=== PATIENT | female | born 1995 | race Caucasian/White ===

== ENCOUNTER → 2017-06-16 | Outpatient (CLI) | payer BC, OTHER ==
[~2017-06-16] MED LIST: AGM875T PO; DROS1TAB PO; HYDR-3583 PO; IBUP400T22 PO; NORG1TAB15 PO; OMEP-10 PO
--- NOTE | 2017-06-16 13:41 | Diagnostic Imaging Report ---
INDICATION: Dyspareunia and pain. TECHNIQUE: Multiple realtime grayscale images were obtained of the pelvis in various projections both transabdominally and endovaginally. FINDINGS: Uterus measures 7.3 x 4.3 x 3.7 cm. Endometrial thickness is 8 mm. There are no discrete myometrial or endometrial masses. Both ovaries are normal in size, morphology and demonstrate normal blood flow. There is a partially collapsed cyst in the left ovary measuring 1.4 cm. There is a small amount of free fluid in the cul-de-sac. IMPRESSION: 1.4 cm partially collapsed cyst in the left ovary as well as a small amount of free fluid in the pelvis, otherwise unremarkable pelvic ultrasound. Dictated by: Dictated on workstation # [id number]
== END ==
LOC: RAD 12:11
PROVIDERS: ATTEND Nurse Practitioner Family
DX: N83.202 Unspecified ovarian cyst, left side (principal)
CPT/HCPCS: 76830; 76856

== ENCOUNTER 2022-03-12 18:47 | Inpatient (IN) | payer OTHER ==
[~2022-03-12] VITALS: Ht 157.5 cm; Wt 170.0 kg
[2022-03-12 20:08] VITALS: BP 127/82
[2022-03-12] MEDS ORDERED: TERBUTALINE INJ 1 MG/ML (BRETHINE) AMP SC PRN (20:30)
[2022-03-12] MEDS ORDERED: MINERAL OIL 30 ML TOP PRN (20:30)
[2022-03-12] MEDS ORDERED: LACTATED RINGERS 1,000 ML IV SCH (20:30)
[2022-03-12] MEDS ORDERED: AMPICILLIN FOR IV USE 2,000 MG in NS (IVPB) 50 ML IV SCH (20:52)
[2022-03-12 21:00] LABS: BILIRUBIN,URINE NEGATIVE (NEGATIVE); CLARITY,URINE CLEAR; COLOR,URINE YELLOW; GLUCOSE, URINE (UA) NEGATIVE (NEGATIVE); KETONES,URINE NEGATIVE (NEGATIVE); LEUKOCYTE ESTERASE ,URINE NEGATIVE (NEGATIVE); NITRITE,URINE NEGATIVE (NEGATIVE); PH,URINE 6.5 (5-9); PROTEIN,URINE NEGATIVE (NEGATIVE)
[2022-03-12 21:27] LABS: BASOPHILS % (AUTO) 0 % (0-10); EOSINOPHILS # (AUTO) 0.1 10^3/uL (0.0-0.3); EOSINOPHILS % (AUTO) 1 % (0-10); HEMATOCRIT 37 % (35-52); HEMOGLOBIN 12.7 g/dL (11.5-16.0); LYMPHOCYTES # (AUTO) 3.5 10^3/uL (1.0-4.0); LYMPHOCYTES % (AUTO) 30 % (12-44); MEAN CORPUSCULAR HEMOGLOBIN 32 pg (25-34); MEAN CORPUSCULAR HGB CONC 34 g/dL (32-36); MEAN CORPUSCULAR VOLUME 92 fL (80-99); MEAN PLATELET VOLUME 10.7 fL (9.0-12.2); MONOCYTES # (AUTO) 0.7 10^3/uL (0.0-1.0); MONOCYTES % (AUTO) 6 % (0-12); NEUTROPHILS # (AUTO) 7.4 10^3/uL (1.8-7.8); NEUTROPHILS % (AUTO) 63 % (42-75); PLATELET COUNT 218 10^3/uL (130-400); WHITE BLOOD COUNT 11.8 10^3/uL (4.3-11.0)
[2022-03-12] MEDS ORDERED: D5 LR IV SOLUTION 1,000 ML IV ONE (21:34)
[2022-03-12] MEDS ORDERED: AMPICILLIN 2,000 MG/14.8 ML (IV USE) ONE (21:35)
[2022-03-12] MEDS ORDERED: NS (IVPB) 50 ML ONE (21:35)
[2022-03-12 21:37] LABS: BACTERIA,URINE TRACE /HPF; RBC,URINE RARE /HPF
[2022-03-12 21:39] VITALS: BP 140/85
[2022-03-12] MEDS: D5 LR IV SOLUTION 1,000 ML IV SCH ×2 (21:43→23:00)
[2022-03-12] MEDS: CATHETER FLUSH 10 ML SYR IV SCH (22:00)
[2022-03-12 22:10] VITALS: BP 116/71
[2022-03-12 22:39] VITALS: BP 116/85
[2022-03-12 23:17] VITALS: BP 120/77
[2022-03-13] VITALS (68 sets, daily range): BP systolic 103–152; BP diastolic 57–92
[2022-03-13] MEDS: AMPICILLIN FOR IV USE 1,000 MG in NS (IVPB) 50 ML IV SCH ×6 (01:40→22:00)
[2022-03-13] MEDS ORDERED: MAGN250T13 PO (05:58)
[2022-03-13] MEDS ORDERED: PNV91TAB6 PO (05:58)
[2022-03-13] MEDS: CATHETER FLUSH 10 ML SYR IV SCH ×2 (06:00→16:09)
[2022-03-13] MEDS: D5 LR IV SOLUTION 1,000 ML IV SCH ×2 (07:47→16:19)
--- NOTE | 2022-03-13 07:58 | History & Physical-OB ---
OB - Chief Complaint & HPI Date/Time Date of Admission: Date of Admission: Mar 12, 2022 at 19:56 Date seen by a Provider: Mar 13, 2022 Time Seen by a Provider: 07:00 Chief Complaint/History OB-Reason for Admission/Chief: Induction of Labor Hx : 3 Hx Para: 0 Expected Date of Delivery: March 07, 2022 Gestational Age in Weeks: 40 Gestational Age in Days: 6 Allergies and Home Medications Allergies Coded Allergies: No Known Drug Allergies (Unverified , 08/01/11) Patient Home Medication List Home Medication List Reviewed: Yes Magnesium Oxide (Magnesium) 250 Mg Tablet, 250 MG PO DAILY, (Reported) Entered as Reported by: JAN IVERSON on 03/13/22557 Last Action: New Order Pnv95/Ferrous Fumarate/FA ( Vitamin Tablet) 28 Mg Iron-800 Mcg Tablet, 1 EACH PO DAILY, (Reported) Entered as Reported by: JAN IVERSON on 03/13/22557 Last Action: New Order Discontinued Medications Norgestimate-Ethinyl Estradiol (Tri-Sprintec 28 Day) 1 Each Tablet, 1 EACH PO DAILY, (Reported) Discontinued Reason: No Longer Taking Entered as Reported by: TEZ MATT on 12/19/112136 Last Action: Discontinued Omeprazole (Prilosec 20 Mg) 20 Mg Capsule., 20 MG PO DAILY@,16 Discontinued Reason: No Longer Taking Prescribed by: INA FRANKLIN on 09/04/13747 Last Action: Discontinued OB - History Hx of Present Care: Yes Ultrasounds: Normal mid trimester US Obstetrical Complications: None Medical Complications: None Information Induced Hypertension: No Maternal Gestational Diabetes: No Hemorrhage: No Obstetrical History Hx : 3 Hx Para: 0 Number of Living Children: 0 Delivery History Hx Blood Disorders: No Patient Past Medical History None Social History/Family History Alcohol Use: Denies Use Recreational Drug Use: No Smoking Cessation: Never smoker 2nd Hand Smoke Exposure: No Immunizations Tetanus Booster (TDap): Less than 5yrs Rubella: immune RPR/VDRL: Negative GBS Status: Positive (Urine Culture at OB intake) HBsAG: Negative OB - Admission Exam Physical Exam Vitals: Vital Signs 03/13/22 06:21 Temp 36.9 Pulse 75 Resp 18 B/P (MAP) 142/88 (106) O2 Delivery Room Air HEENT: NCAT Heart: Rhythm Normal Lungs: Clear Abdomen: Gravid Cervical Dilatation: 2cm Effacement: 50% Station: -2 Membranes: Intact Accelerations: Accelerations Present Decelerations: No Decelerations Short Term Variability: Present Care Home Variability: Average (6-25) Contractions on Admission: < 5 Minutes Apart Intensity: Moderate [place] Scoring Tool (Modified) Dilation (cm): 1-2cm (1) Effacement (%): 51-79% (2) Descent/Station: -2 (1) Cervix Consistency: Medium(1) Cervix Position: Posterior (0) Subtract 1 point for: Nulliparity (-1) Labs Laboratory Tests Test 03/12/22 19:00 03/12/22 21:00 Range/Units Urine Color YELLOW Urine Clarity CLEAR Urine pH 6.5 5-9 Urine Specific [place] <=1.005 1.016-1.022 Urine Protein NEGATIVE NEGATIVE Urine Glucose (UA) NEGATIVE NEGATIVE Urine Ketones NEGATIVE NEGATIVE Urine Nitrite NEGATIVE NEGATIVE Urine Bilirubin NEGATIVE NEGATIVE Urine Urobilinogen 0.2 < = 1.0 MG/DL Urine Leukocyte Esterase NEGATIVE NEGATIVE Urine RBC (Auto) TRACE-I H NEGATIVE Urine RBC RARE /HPF Urine WBC NONE /HPF Urine Squamous Epithelial Cells 2-5 /HPF Urine Crystals NONE /LPF Urine Bacteria TRACE /HPF Urine Casts NONE /LPF Urine Mucus NEGATIVE /LPF Urine Culture Indicated NO White Blood Count 11.8 H 4.3-11.0 10^3/uL Red Blood Count 4.02 3.80-5.11 10^6/uL Hemoglobin 12.7 11.5-16.0 g/dL Hematocrit 37 35-52 % Mean Corpuscular Volume 92 80-99 fL Mean Corpuscular Hemoglobin 32 25-34 pg Mean Corpuscular Hemoglobin Concent 34 32-36 g/dL Red Cell Distribution Width 13.1 10.0-14.5 % Platelet Count 218 130-400 10^3/uL Mean Platelet Volume 10.7 9.0-12.2 fL Immature Granulocyte % (Auto) 1 % Neutrophils (%) (Auto) 63 42-75 % Lymphocytes (%) (Auto) 30 12-44 % Monocytes (%) (Auto) 6 0-12 % Eosinophils (%) (Auto) 1 0-10 % Basophils (%) (Auto) 0 0-10 % Neutrophils # (Auto) 7.4 1.8-7.8 10^3/uL Lymphocytes # (Auto) 3.5 1.0-4.0 10^3/uL Monocytes # (Auto) 0.7 0.0-1.0 10^3/uL Eosinophils # (Auto) 0.1 0.0-0.3 10^3/uL Basophils # (Auto) 0.0 0.0-0.1 10^3/uL Immature Granulocyte # (Auto) 0.1 0.0-0.1 10^3/uL OB - Assessment/Plan/Diagnosis Assessment Assessment: induction of labor Admission Dx Third Trimester 40 week gestation Admission Status: Inpatient Order (span 2 midnights) Reason for Inpatient Admission: IOL Plan Other Plan 26 yo @ 40.6 wga here for IOL Plan - Cytotec - AROM - GBS +, treat with ampicillin LARA WATERS MD Mar 13, 2022 07:58
[2022-03-13] MEDS ORDERED: OXYTOCIN PRE-MIX DRIP 500 ML IV SCH (11:15)
[2022-03-13] MEDS ORDERED: fentaNYL 2 mcg/ml BUPIVA 0.125 100 ML ONE (13:53)
[2022-03-13] MEDS ORDERED: NALOXONE 0.4 MG/ML 1 ML (NARCAN) VIAL IV PRN ×2 (14:00)
[2022-03-13] MEDS ORDERED: EPIDURAL (fentaNYL 2 MCG/ML BUPIVA 0.125%)100 ML BAG EPI SCH (14:00)
[2022-03-13] MEDS ORDERED: LACTATED RINGERS 1,000 ML IV SCH (14:00)
[2022-03-13] MEDS ORDERED: ONDANSETRON 4 MG/2 ML (SDV) Z0FRAN IV PRN (14:00)
[2022-03-13] MEDS ORDERED: diphenhydrAMINE 50 MG/ML INJ (BENADRYL) IV PRN (14:00)
[2022-03-13] MEDS ORDERED: METOCLOPRAMIDE INJ 10 MG/2 ML (REGLAN) IV PRN (14:00)
[2022-03-13] MEDS ORDERED: fentaNYL INJ 100 MCG/2 ML AMP ONE (14:02)
[2022-03-13] MEDS ORDERED: BUPIVACAINE 0.25% 10 ML (SENSORCAINE) VIAL ONE (14:02)
--- NOTE | 2022-03-13 20:24 | Labor Progress Note ---
Labor Progress Note Labor Progress Note Date Seen by Provider: Mar 13, 2022 Time Seen by Provider: 12:45 Subjective: Pt denies complaints. Starting to feel more pressure and pain Objective: SVE /-1 AROM Thin meconium Assessment/Plan: Seth Del Cid is a (26 /Para 3/0 ,Gestational Age (wks)40.6 here for IOL for post dates CEFM/TOCO Continue pitocin Anesthesia: would like to hold on off on epidural at this time GBS +: Continue ampicillin, has been adequately treated Anticipate vaginal delivery. Vitals - Labs Vital Signs - I&O Vital Signs Date Time Temp Pulse Resp B/P (MAP) Pulse Ox O2 Delivery O2 Flow Rate FiO2 03/13/22 19:00 76 126/78 (94) Room Air 03/13/22 18:45 96 128/78 (95) Non Rebreather 15.00 03/13/22 18:41 Non Rebreather 15.00 03/13/22 18:30 77 120/71 (87) Room Air 03/13/22 18:22 126 18 112/75 (87) Room Air 03/13/22 18:15 Room Air 03/13/22 18:00 83 18 135/74 (94) 99 Room Air 03/13/22 17:45 83 18 135/74 (94) 99 Room Air 03/13/22 17:30 92 18 97 Room Air 03/13/22 17:15 76 18 133/81 (98) 98 Room Air 03/13/22 17:00 62 18 105/58 (74) 98 Room Air 03/13/22 16:45 71 18 110/61 (77) 98 Room Air 03/13/22 16:34 35.4 03/13/22 16:30 105 18 97 Room Air 03/13/22 16:15 94 18 121/68 (85) 98 Room Air 03/13/22 16:00 89 18 123/70 (87) 99 Room Air 03/13/22 15:45 93 18 117/76 (90) 98 Room Air 03/13/22 15:30 74 18 132/78 (96) 94 Room Air 03/13/22 15:15 74 18 132/78 (96) 94 Room Air 03/13/22 15:00 70 18 98 Room Air 03/13/22 14:50 35.7 80 18 131/75 (93) 99 Room Air 03/13/22 14:47 67 18 134/73 (93) 99 Room Air 03/13/22 14:45 78 18 141/85 (103) 98 Room Air 03/13/22 14:40 64 18 136/64 (88) 97 Room Air 03/13/22 14:37 74 18 148/82 (104) 97 Room Air 03/13/22 14:35 72 18 148/88 (108) Room Air 03/13/22 14:30 57 18 152/90 (110) 98 Room Air 03/13/22 14:29 63 18 107/59 (75) 97 Room Air 03/13/22 14:25 77 18 103/57 (72) 98 Room Air 03/13/22 14:20 78 18 121/68 (85) 98 Room Air 03/13/22 14:15 90 18 124/75 (91) 97 Room Air 03/13/22 14:10 87 18 126/83 (97) 98 Room Air 03/13/22 14:00 80 18 140/89 (106) 98 Room Air 03/13/22 13:45 67 18 145/84 (104) Room Air 03/13/22 13:30 63 18 126/76 (93) Room Air 03/13/22 13:15 69 18 132/82 (99) Room Air 03/13/22 13:00 75 18 120/80 (93) Room Air 03/13/22 12:45 72 18 125/80 (95) Room Air 03/13/22 12:30 71 18 121/81 (94) Room Air 03/13/22 12:15 71 18 126/85 (99) Room Air 03/13/22 12:00 73 18 125/83 (97) Room Air 03/13/22 11:45 59 18 117/76 (90) Room Air 03/13/22 11:30 73 18 131/80 (97) Room Air 03/13/22 11:00 66 18 128/86 (100) Room Air 03/13/22 10:15 81 18 127/77 (94) Room Air 03/13/22 09:20 65 18 127/81 (96) Room Air 03/13/22 08:15 77 18 128/82 (97) Room Air 03/13/22 07:50 36.8 82 18 139/78 (98) 97 Room Air 03/13/22 07:20 63 18 125/84 (98) Room Air 03/13/22 06:21 36.9 75 18 142/88 (106) Room Air 03/13/22 05:21 57 18 133/82 (99) Room Air 03/13/22 04:20 68 18 126/74 (91) Room Air 03/13/22 03:22 56 18 117/65 (82) Room Air 03/13/22 02:21 36.6 75 18 120/72 (88) Room Air 03/13/22 01:21 74 18 129/78 (95) Room Air 03/13/22 00:25 62 18 119/66 (83) Room Air 03/12/22 23:17 36.9 78 18 120/77 (91) Room Air 03/12/22 22:39 68 18 116/85 (95) Room Air 03/12/22 22:10 70 18 116/71 (86) Room Air 03/12/22 21:39 37.0 78 18 140/85 (103) Room Air I & O 03/13/22 07:00 Intake Total 2050 ml Balance 2050 ml Labs Laboratory Tests 03/12/22 21:00: White Blood Count 11.8H, Red Blood Count 4.02, Hemoglobin 12.7, Hematocrit 37, Mean Corpuscular Volume 92, Mean Corpuscular Hemoglobin 32, Mean Corpuscular Hemoglobin Concent 34, Red Cell Distribution Width 13.1, Platelet Count 218, Mean Platelet Volume 10.7, Immature Granulocyte % (Auto) 1, Neutrophils (%) (Auto) 63, Lymphocytes (%) (Auto) 30, Monocytes (%) (Auto) 6, Eosinophils (%) (Auto) 1, Basophils (%) (Auto) 0, Neutrophils # (Auto) 7.4, Lymphocytes # (Auto) 3.5, Monocytes # (Auto) 0.7, Eosinophils # (Auto) 0.1, Basophils # (Auto) 0.0, Immature Granulocyte # (Auto) 0.1 LARA WATERS MD Mar 13, 2022 20:24
--- NOTE | 2022-03-13 20:26 | Labor Progress Note ---
Labor Progress Note Labor Progress Note Date Seen by Provider: Mar 13, 2022 Time Seen by Provider: 18:00 Subjective: Pt denies complaints. Patient got epidural eariler and had hypotension with symptoms. Objective: SVE /- Assessment/Plan: Seth Del Cid is a (26 /Para 3 / 0,Gestational Age (wks)40.6 here for IOL CEFM/TOCO Having more variable decelerations Continue pitocin on hold for 30 mins after several deep variable decelerations Anesthesia: epidural in place Anticipate vaginal delivery. Vitals - Labs Vital Signs - I&O Vital Signs Date Time Temp Pulse Resp B/P (MAP) Pulse Ox O2 Delivery O2 Flow Rate FiO2 03/13/22 19:00 76 126/78 (94) Room Air 03/13/22 18:45 96 128/78 (95) Non Rebreather 15.00 03/13/22 18:41 Non Rebreather 15.00 03/13/22 18:30 77 120/71 (87) Room Air 03/13/22 18:22 126 18 112/75 (87) Room Air 03/13/22 18:15 Room Air 03/13/22 18:00 83 18 135/74 (94) 99 Room Air 03/13/22 17:45 83 18 135/74 (94) 99 Room Air 03/13/22 17:30 92 18 97 Room Air 03/13/22 17:15 76 18 133/81 (98) 98 Room Air 03/13/22 17:00 62 18 105/58 (74) 98 Room Air 03/13/22 16:45 71 18 110/61 (77) 98 Room Air 03/13/22 16:34 35.4 03/13/22 16:30 105 18 97 Room Air 03/13/22 16:15 94 18 121/68 (85) 98 Room Air 03/13/22 16:00 89 18 123/70 (87) 99 Room Air 03/13/22 15:45 93 18 117/76 (90) 98 Room Air 03/13/22 15:30 74 18 132/78 (96) 94 Room Air 03/13/22 15:15 74 18 132/78 (96) 94 Room Air 03/13/22 15:00 70 18 98 Room Air 03/13/22 14:50 35.7 80 18 131/75 (93) 99 Room Air 03/13/22 14:47 67 18 134/73 (93) 99 Room Air 03/13/22 14:45 78 18 141/85 (103) 98 Room Air 03/13/22 14:40 64 18 136/64 (88) 97 Room Air 03/13/22 14:37 74 18 148/82 (104) 97 Room Air 03/13/22 14:35 72 18 148/88 (108) Room Air 03/13/22 14:30 57 18 152/90 (110) 98 Room Air 03/13/22 14:29 63 18 107/59 (75) 97 Room Air 03/13/22 14:25 77 18 103/57 (72) 98 Room Air 03/13/22 14:20 78 18 121/68 (85) 98 Room Air 03/13/22 14:15 90 18 124/75 (91) 97 Room Air 03/13/22 14:10 87 18 126/83 (97) 98 Room Air 03/13/22 14:00 80 18 140/89 (106) 98 Room Air 03/13/22 13:45 67 18 145/84 (104) Room Air 03/13/22 13:30 63 18 126/76 (93) Room Air 03/13/22 13:15 69 18 132/82 (99) Room Air 03/13/22 13:00 75 18 120/80 (93) Room Air 03/13/22 12:45 72 18 125/80 (95) Room Air 03/13/22 12:30 71 18 121/81 (94) Room Air 03/13/22 12:15 71 18 126/85 (99) Room Air 03/13/22 12:00 73 18 125/83 (97) Room Air 03/13/22 11:45 59 18 117/76 (90) Room Air 03/13/22 11:30 73 18 131/80 (97) Room Air 03/13/22 11:00 66 18 128/86 (100) Room Air 03/13/22 10:15 81 18 127/77 (94) Room Air 03/13/22 09:20 65 18 127/81 (96) Room Air 03/13/22 08:15 77 18 128/82 (97) Room Air 03/13/22 07:50 36.8 82 18 139/78 (98) 97 Room Air 03/13/22 07:20 63 18 125/84 (98) Room Air 03/13/22 06:21 36.9 75 18 142/88 (106) Room Air 03/13/22 05:21 57 18 133/82 (99) Room Air 03/13/22 04:20 68 18 126/74 (91) Room Air 03/13/22 03:22 56 18 117/65 (82) Room Air 03/13/22 02:21 36.6 75 18 120/72 (88) Room Air 03/13/22 01:21 74 18 129/78 (95) Room Air 03/13/22 00:25 62 18 119/66 (83) Room Air 03/12/22 23:17 36.9 78 18 120/77 (91) Room Air 03/12/22 22:39 68 18 116/85 (95) Room Air 03/12/22 22:10 70 18 116/71 (86) Room Air 03/12/22 21:39 37.0 78 18 140/85 (103) Room Air I & O 03/13/22 07:00 Intake Total 2050 ml Balance 2050 ml Labs Laboratory Tests 03/12/22 21:00: White Blood Count 11.8H, Red Blood Count 4.02, Hemoglobin 12.7, Hematocrit 37, Mean Corpuscular Volume 92, Mean Corpuscular Hemoglobin 32, Mean Corpuscular Hemoglobin Concent 34, Red Cell Distribution Width 13.1, Platelet Count 218, Mean Platelet Volume 10.7, Immature Granulocyte % (Auto) 1, Neutrophils (%) (Auto) 63, Lymphocytes (%) (Auto) 30, Monocytes (%) (Auto) 6, Eosinophils (%) (Auto) 1, Basophils (%) (Auto) 0, Neutrophils # (Auto) 7.4, Lymphocytes # (Auto) 3.5, Monocytes # (Auto) 0.7, Eosinophils # (Auto) 0.1, Basophils # (Auto) 0.0, Immature Granulocyte # (Auto) 0.1 LARA WATERS MD Mar 13, 2022 20:26
[2022-03-14] VITALS (17 sets, daily range): BP systolic 78–134; BP diastolic 48–83
[2022-03-14] MEDS ORDERED: METOCLOPRAMIDE INJ 10 MG/2 ML (REGLAN) ONE (00:35)
[2022-03-14] MEDS ORDERED: FAMOTIDINE 20MG/2ML IV (PEPCID) ONE (00:35)
[2022-03-14] MEDS ORDERED: CITRIC ACID/SOB CIT (BICITRA) 30 ML UDC ONE (00:35)
[2022-03-14] MEDS ORDERED: LACTATED RINGERS 1,000 ML IV PRN (00:45)
[2022-03-14] MEDS ORDERED: METOCLOPRAMIDE INJ 10 MG/2 ML (REGLAN) IV ONE (00:45)
[2022-03-14] MEDS ORDERED: FAMOTIDINE 20MG/2ML IV (PEPCID) IV ONE (00:45)
[2022-03-14] MEDS ORDERED: CITRIC ACID/SOB CIT (BICITRA) 30 ML UDC PO ONE (00:45)
[2022-03-14] MEDS: LACTATED RINGERS 1,000 ML IV PRN ×2 (00:47→01:26)
[2022-03-14] MEDS ORDERED: ceFAZolin 2 GM IV Premixed 50 ML ONE (00:53)
[2022-03-14] MEDS ORDERED: fentaNYL INJ 100 MCG/2 ML AMP ONE (01:04)
--- NOTE | 2022-03-14 01:16 | Progress Note ---
Standard Progress Note Progress Notes/Assess & Plan Date Seen by a Provider: Mar 14, 2022 Time Seen by a Provider: 01:10 Progress/Assessment & Plan Patient admitted for post dates IOL by Dr. Freire. Induction has stalled at 8 cm without any further change since 2129 yesterday evening. Due to arrest of dilatation decision was made to consult myself by Dr. Freire. Patient seen and chart review, indication reviewed with patient and she was agreeable to proceed. SHANE MILLER DO Mar 14, 2022 01:16
--- NOTE | 2022-03-14 01:18 | Labor Progress Note ---
Labor Progress Note Labor Progress Note Date Seen by Provider: Mar 14, 2022 Time Seen by Provider: 00:15 Subjective: Patient starting to have more back pain. Objective: SVE /- Assessment/Plan: Seth Del Cid is a (26 /Para 3 / 0,Gestational Age (wks)41.0 here for IOL for post dates CEFM/TOCO No change in SVE since 2129, cervix is starting to swell and more caput is felt on exam, discussed with patient and spouse that we are no longer progressing and discussed the need for c section Anesthesia: Epidural GBS adequately treated Consult Dr Hutchins for c section Vitals - Labs Vital Signs - I&O Vital Signs Date Time Temp Pulse Resp B/P (MAP) Pulse Ox O2 Delivery O2 Flow Rate FiO2 03/13/22 23:15 89 137/85 (102) Room Air 03/13/22 23:00 103 137/92 (107) Room Air 03/13/22 22:45 93 140/90 (107) Room Air 03/13/22 22:30 132/74 (93) Room Air 03/13/22 22:15 36.8 91 134/82 (99) Room Air 03/13/22 22:00 91 122/85 (97) Room Air 03/13/22 21:45 85 128/83 (98) Room Air 03/13/22 21:30 98 119/75 (90) Room Air 03/13/22 21:15 85 120/72 (88) Room Air 03/13/22 21:00 86 141/91 (108) Room Air 03/13/22 20:45 85 136/86 (103) Room Air 03/13/22 20:30 96 133/80 (97) Room Air 03/13/22 20:15 90 123/80 (94) Room Air 03/13/22 20:00 78 125/77 (93) Room Air 03/13/22 19:45 106 119/73 (88) Room Air 03/13/22 19:30 36.0 92 129/81 (97) Room Air 03/13/22 19:15 Room Air 03/13/22 19:00 76 126/78 (94) Room Air 03/13/22 18:45 96 128/78 (95) Non Rebreather 15.00 03/13/22 18:41 Non Rebreather 15.00 03/13/22 18:30 77 120/71 (87) Room Air 03/13/22 18:22 126 18 112/75 (87) Room Air 03/13/22 18:15 Room Air 03/13/22 18:00 83 18 135/74 (94) 99 Room Air 03/13/22 17:45 83 18 135/74 (94) 99 Room Air 03/13/22 17:30 92 18 97 Room Air 03/13/22 17:15 76 18 133/81 (98) 98 Room Air 03/13/22 17:00 62 18 105/58 (74) 98 Room Air 03/13/22 16:45 71 18 110/61 (77) 98 Room Air 03/13/22 16:34 35.4 03/13/22 16:30 105 18 97 Room Air 03/13/22 16:15 94 18 121/68 (85) 98 Room Air 03/13/22 16:00 89 18 123/70 (87) 99 Room Air 03/13/22 15:45 93 18 117/76 (90) 98 Room Air 03/13/22 15:30 74 18 132/78 (96) 94 Room Air 03/13/22 15:15 74 18 132/78 (96) 94 Room Air 03/13/22 15:00 70 18 98 Room Air 03/13/22 14:50 35.7 80 18 131/75 (93) 99 Room Air 03/13/22 14:47 67 18 134/73 (93) 99 Room Air 03/13/22 14:45 78 18 141/85 (103) 98 Room Air 03/13/22 14:40 64 18 136/64 (88) 97 Room Air 03/13/22 14:37 74 18 148/82 (104) 97 Room Air 03/13/22 14:35 72 18 148/88 (108) Room Air 03/13/22 14:30 57 18 152/90 (110) 98 Room Air 03/13/22 14:29 63 18 107/59 (75) 97 Room Air 03/13/22 14:25 77 18 103/57 (72) 98 Room Air 03/13/22 14:20 78 18 121/68 (85) 98 Room Air 03/13/22 14:15 90 18 124/75 (91) 97 Room Air 03/13/22 14:10 87 18 126/83 (97) 98 Room Air 03/13/22 14:00 80 18 140/89 (106) 98 Room Air 03/13/22 13:45 67 18 145/84 (104) Room Air 03/13/22 13:30 63 18 126/76 (93) Room Air 03/13/22 13:15 69 18 132/82 (99) Room Air 03/13/22 13:00 75 18 120/80 (93) Room Air 03/13/22 12:45 72 18 125/80 (95) Room Air 03/13/22 12:30 71 18 121/81 (94) Room Air 03/13/22 12:15 71 18 126/85 (99) Room Air 03/13/22 12:00 73 18 125/83 (97) Room Air 03/13/22 11:45 59 18 117/76 (90) Room Air 03/13/22 11:30 73 18 131/80 (97) Room Air 03/13/22 11:00 66 18 128/86 (100) Room Air 03/13/22 10:15 81 18 127/77 (94) Room Air 03/13/22 09:20 65 18 127/81 (96) Room Air 03/13/22 08:15 77 18 128/82 (97) Room Air 03/13/22 07:50 36.8 82 18 139/78 (98) 97 Room Air 03/13/22 07:20 63 18 125/84 (98) Room Air 03/13/22 06:21 36.9 75 18 142/88 (106) Room Air 03/13/22 05:21 57 18 133/82 (99) Room Air 03/13/22 04:20 68 18 126/74 (91) Room Air 03/13/22 03:22 56 18 117/65 (82) Room Air 03/13/22 02:21 36.6 75 18 120/72 (88) Room Air 03/13/22 01:21 74 18 129/78 (95) Room Air I & O 03/14/22 07:00 Intake Total 1000 ml Balance 1000 ml LARA WATERS MD Mar 14, 2022 01:18
[2022-03-14] MEDS ORDERED: MEASLES,MUMPS,RUBELLA 1 EA INJ SC SCH (01:30)
[2022-03-14] MEDS ORDERED: TETANUS,DIPTH,PERTUSS P/F (BOOSTRIX) 0.5 ML VIAL IM SCH (01:30)
[2022-03-14] MEDS ORDERED: ONDANSETRON 4 MG/2 ML (SDV) Z0FRAN IVP PRN (01:30)
[2022-03-14] MEDS ORDERED: NALOXONE 0.4 MG/ML 1 ML (NARCAN) VIAL IV PRN (01:30)
[2022-03-14] MEDS ORDERED: BUPIVACAINE 0.5% 30 ML (SENSORCAINE) VIAL ONE (01:46)
[2022-03-14] MEDS ORDERED: LIDOCAINE PF 2% 5 ML (XYLOCAINE) VIAL ONE (01:46)
[2022-03-14] MEDS ORDERED: OXYTOCIN PRE-MIX DRIP 1,000 ML IV ONE (01:46)
[2022-03-14] MEDS ORDERED: ONDANSETRON 4 MG/2 ML (SDV) Z0FRAN ONE (01:46)
[2022-03-14] MEDS ORDERED: KETOROLAC 30 MG/ML VIAL ONE (03:15)
[2022-03-14] MEDS: KETOROLAC 30 MG/ML VIAL IV SCH ×3 (03:18→15:36)
[2022-03-14] MEDS: OXYTOCIN PRE-MIX DRIP 500 ML IV SCH (03:19)
[2022-03-14] MEDS: CATHETER FLUSH 10 ML SYR IV SCH ×3 (08:51→22:48)
--- NOTE | 2022-03-14 09:54 | OPERATIVE REPORT ---
DATE OF SERVICE: PREOPERATIVE DIAGNOSES: 1. A 26-year-old G1, P0 at 41 weeks' gestation. 2. Arrest of dilatation. 3. Meconium-stained fluid. POSTOPERATIVE DIAGNOSES. 1. A 26-year-old G1, P0 at 41 weeks' gestation. 2. Arrest of dilatation. 3. Meconium-stained fluid. PROCEDURE: Primary low transverse section. SURGEON: Negro Miller DO ANESTHESIA: Epidural, which was bolused. ESTIMATED BLOOD LOSS: 500 mL. URINE OUTPUT: 400 mL clear at the end of the procedure. FLUIDS: 1000 mL lactated Ringer's solution. FINDINGS: A live male weighing 7 pounds 7 ounces, Apgars of 8 and 9. Grossly normal appearing uterus, bilateral fallopian tubes and ovaries. SPECIMEN SENT: Placenta. INDICATIONS FOR PROCEDURE: This 26-year-old female is a patient who had sought her care at [facility] with Dr. Freire. Her care was uncomplicated with the exception of she did reach postdates and had an induction starting at 1 cm dilatation. Her induction was going well until she reached approximately 8 cm, at which point there was no further roving changer the next 4 hours despite adequate contraction pattern. Due to arrest of dilatation, her physician discussed with her proceeding with at which point I was contacted. I presented to review the risks with the patient. After all her questions were answered, consent was obtained by the patient's bedside and the patient was taken to the operating room. OPERATIVE REPORT IN DETAIL: Once in the operating room, epidural analgesia was bolused and found to be adequate. She was placed in supine position with leftward tilt, prepped and draped in normal sterile fashion. A timeout was performed, and anesthesia was tested. I then make a Pfannenstiel skin incision with a knife and carried down to underlying fascia using Bovie cautery. Fascial incision extended laterally using Bovie cautery. The superior aspect of fascial incision was then grasped with Job clamps, tented up and dissected off the underlying rectus muscles. The inferior aspect of the fascial incision was then grasped with Job clamps, tented up and dissected off the underlying rectus muscles. Rectus muscles were dissected down the midline using sharp dissection, which exposed the peritoneum, which I entered bluntly and extended using blunt traction. Ramirez ring retractor was placed in the peritoneal incision, which offers excellent lateral sidewall retraction. I identified the lower uterine segment, which was found to be thinned out and make a low transverse incision to the vesicouterine peritoneum and bluntly dissected off the lower uterine segment, creating a bladder flap. I then proceeded with my myotomy until membranes were visualized, at which point I extended the uterine incision laterally and superiorly using bandage scissors. Amniotomy was performed in the process of doing this, there was meconium-stained fluid. The was found in vertex presentation. With gentle fundal pressure, the 's head was elevated up to the incision where the nares and oropharynx were bulb suctioned. Anterior and posterior shoulders were delivered. was then brought to the operative field with cord was doubly clamped and cut and was handed off to Dr. Freire, who was present for delivery. Cord blood was collected, 3-vessel cord with intact placenta was delivered spontaneously thereafter. IV Pitocin was initiated to facilitate uterine contraction. Uterine fundus confirmed by manual massage. Uterus was exteriorized and cleared of all endometrial clots and debris. I then proceeded with closing the uterine incision using 0 Vicryl suture in running locked fashion. Second layer of imbricating 0 Monocryl was placed. Excellent hemostasis was noted after doing this. I then placed the uterus back within the pelvis and copiously irrigated the pelvis using normal saline. Once again, there was no active bleeding noted from any of my dissection planes. I placed Interceed antiadhesive over my low transverse incision. I removed the Ramirez ring retractor. I then proceeded with closing the peritoneum using 3-0 Vicryl suture in a running fashion. The rectus muscle reapproximated using 3-0 Vicryl suture in interrupted fashion. The fascia was reapproximated using 0 Vicryl suture in running fashion. Subcutaneous tissue was reapproximated using 3-0 plain interrupted subcutaneous stitch and skin reapproximated using 4-0 Monocryl running subcuticular. Dermabond was applied to incision and sterile dressing with adhesive white tape. The patient tolerated the procedure well and sent to recovery area in stable condition. Lap and sponge counts were correct at the end of procedure. Instrument counts correct as well. Two grams of Ancef given preoperatively for infection prophylaxis. Job ID: [id number] DocumentID: [id number] Dictated Date: 03/14/2022 02:11:08 [employer] Date: 03/14/2022 09:53:23 Dictated By: NEGRO MILLER DO
[2022-03-14] MEDS: HYDROcodone/APAP 5 MG/325 MG (LORTAB) TAB PO PRN ×2 (12:34→19:32)
--- NOTE | 2022-03-14 15:41 | Anesthesia-Regional Post-Op ---
Regional Patient Condition Mental Status: Alert, Oriented x3 Circulation: Same as Pre-Op Headache: Absent Sensation: Full Recovery Motor Block: Absent Post Op Complications Complications None Follow Up Care/Instructions Patient Instructions None needed. Anesthesia/Patient Condition Patient is doing well, no complaints, stable vital signs, no apparent adverse anesthesia problems. PHILLIP SIGALA DO Mar 14, 2022 15:41
[2022-03-14] MEDS: D5 LR IV SOLUTION 1,000 ML IV SCH ×2 (22:47→22:50)
[2022-03-14] MEDS: AMPICILLIN FOR IV USE 1,000 MG in NS (IVPB) 50 ML IV SCH (22:47)
[2022-03-14] MEDS ORDERED: IBUPROFEN 600 MG (MOTRIN) TAB PO ONE (23:05)
[2022-03-14] MEDS: IBUPROFEN 600 MG (MOTRIN) TAB PO SCH (23:12)
[2022-03-14] MEDS: DOCUSATE SODIUM 100 MG (COLACE) CAP PO SCH (23:13)
[2022-03-15] MEDS: OXYTOCIN PRE-MIX DRIP 500 ML IV SCH (01:00)
[2022-03-15 04:20] VITALS: BP 131/78
[2022-03-15] MEDS: HYDROcodone/APAP 5 MG/325 MG (LORTAB) TAB PO PRN (04:24)
[2022-03-15] MEDS: IBUPROFEN 600 MG (MOTRIN) TAB PO SCH ×2 (05:18→14:29)
[2022-03-15 06:03] LABS: BASOPHILS # (AUTO) 0.1 10^3/uL (0.0-0.1); BASOPHILS % (AUTO) 0 % (0-10); EOSINOPHILS # (AUTO) 0.1 10^3/uL (0.0-0.3); EOSINOPHILS % (AUTO) 1 % (0-10); HEMATOCRIT 30 % (35-52); HEMOGLOBIN 10.2 g/dL (11.5-16.0); LYMPHOCYTES % (AUTO) 21 % (12-44); MEAN CORPUSCULAR HEMOGLOBIN 32 pg (25-34); MEAN CORPUSCULAR HGB CONC 34 g/dL (32-36); MEAN CORPUSCULAR VOLUME 94 fL (80-99); MEAN PLATELET VOLUME 10.5 fL (9.0-12.2); MONOCYTES # (AUTO) 0.7 10^3/uL (0.0-1.0); MONOCYTES % (AUTO) 5 % (0-12); NEUTROPHILS # (AUTO) 10.1 10^3/uL (1.8-7.8); NEUTROPHILS % (AUTO) 72 % (42-75); PLATELET COUNT 152 10^3/uL (130-400); WHITE BLOOD COUNT 14.1 10^3/uL (4.3-11.0)
[2022-03-15 06:39] LABS: BAND NEUTROPHILS 1 %; EOSINOPHILS % (MANUAL) 2 %; LYMPHOCYTES % (MANUAL) 27 %; MONOCYTES % (MANUAL) 3 %; NEUTROPHILS % (MANUAL) 67 %; RBC MORPH NORMAL
--- NOTE | 2022-03-15 08:51 | Discharge Inst-Women's Service ---
Discharge Inst-Women's Serv Depart Medication/Instructions New, Converted or Re-Newed RX: Transmitted to Pharmacy Problems Reviewed?: Yes Consults/Follow Up Additional Follow Up: Yes Orders/Referrals Dr. Hutchins in 7-[address] Freire in 6weeks Activity Activity: Activity as Tolerated Driving Instructions: No Driving for 1 Week NO SMOKING: NO SMOKING Nothing Inside Vagina: No Douching, No [place], No Tampons Diet Discharge Diet: No Restrictions Symptoms to Report to : Bleeding Excessive, Pain Increased, Fever Over 101 Degrees F, Vaginal Bleeding Increase, Questions/Concerns For Any Problems or Questions: Contact Your Physician Skin/Wound Care Infection Signs and Symptoms: Increased Redness, Foul Odor of Wound, Increased Drainage, Skin Itchy or Has a Rash, Increased Swelling, Temperature Above 101 F Operative Area Clean and Dry: Keep Incision Clean/Dry Stitches/Neo/Dermabond: Dermabond, Care of Stitches Bathing Instructions: SHANE Cramer DO Mar 15, 2022 08:51
--- NOTE | 2022-03-15 08:51 | Postpartum Progress Note ---
Note Note Day # 1 Subjective: Patient is without complaints. Ambulating, voiding. Tolerating a regular diet without nausea or vomiting. Normal lochia. Pain is well controlled with oral pain medications. Objective: Physical Exam: General - Alert and oriented, no apparent distress Abdomen - Soft, appropriately tender to palpation, non-distended, fundus firm at umbilicus Extremities - no edema, negative Chema's bilaterally Incision- c/d/i Assessment: POD 1 PLTCS Acute blood loss anemia Plan: Routine care. Encourage breast feeding. Encourage ambulation. Ferrous sulfate supplementation. Plan for discharge tomorrow Vitals - Labs Vital Signs - I&O Vital Signs Date Time Temp Pulse Resp B/P (MAP) Pulse Ox O2 Delivery O2 Flow Rate FiO2 03/15/22 04:20 36.4 89 18 131/78 (95) 98 Room Air 03/14/22 23:17 36.8 82 18 122/73 (89) 98 Room Air 03/14/22 19:38 36.8 78 20 128/76 (93) 98 Room Air 03/14/22 15:45 36.8 80 20 122/71 (88) 99 Room Air 03/14/22 12:34 36.1 77 18 128/67 (87) Room Air Labs Laboratory Tests 03/15/22 05:44: White Blood Count 14.1H, Red Blood Count 3.18L, Hemoglobin 10.2L, Hematocrit 30L , Mean Corpuscular Volume 94, Mean Corpuscular Hemoglobin 32, Mean Corpuscular Hemoglobin Concent 34, Red Cell Distribution Width 13.5, Platelet Count 152, Mean Platelet Volume 10.5, Immature Granulocyte % (Auto) 1, Neutrophils (%) (Auto) 72, Lymphocytes (%) (Auto) 21, Monocytes (%) (Auto) 5, Eosinophils (%) (Auto) 1, Basophils (%) (Auto) 0, Neutrophils # (Auto) 10.1H, Lymphocytes # (Auto) 3.0, Monocytes # (Auto) 0.7, Eosinophils # (Auto) 0.1, Basophils # (Auto) 0.1, Immature Granulocyte # (Auto) 0.1, Neutrophils % (Manual) 67, Lymphocytes % (Manual) 27, Monocytes % (Manual) 3, Eosinophils % (Manual) 2, Band Neutrophils 1, Blood Morphology Comment NORMAL SHANE MILLER DO Mar 15, 2022 08:51
[2022-03-15] MEDS ORDERED: ACHD5005 PO ×2 (08:53→11:03)
[2022-03-15] MEDS ORDERED: IBUP-844 PO (08:53)
[2022-03-15] MEDS ORDERED: FERR325T18 PO (08:53)
[2022-03-15] MEDS ORDERED: DOCU100C37 PO (08:53)
[2022-03-15 09:30] VITALS: BP 129/65
[2022-03-15] MEDS: DOCUSATE SODIUM 100 MG (COLACE) CAP PO SCH (10:22)
== END 2022-03-15 15:00 | disposition home or self-care (01) | DRG 787 ==
LOC: WSo 18:47 → LDRP 19:56 → WS 03-14 03:05
PROVIDERS: ADMIT Family Medicine; ATTEND Family Medicine
PROC: 3E0DXGC Introduction of Other Therapeutic Substance into Mouth and Pharynx, External Approach (ICD-10-PCS; 2022-03-12)
PROC: 10D00Z1 Extraction of Products of Conception, Low, Open Approach (ICD-10-PCS; principal; 2022-03-14 01:23)
DX: O48.0 Post-term pregnancy (principal); D62 Acute posthemorrhagic anemia; O99.824 Streptococcus B carrier state complicating childbirth; O77.0 Labor and delivery complicated by meconium in amniotic fluid; O62.1 Secondary uterine inertia; O90.81 Anemia of the puerperium; Z37.0 Single live birth; Z3A.40 40 weeks gestation of pregnancy
CPT/HCPCS: 36415; 81000; 85007; 85025; 85027; 86850; 86900; 86901